=== PATIENT | male | born 1935 | race Caucasian/White ===

== ENCOUNTER → 2021-02-14 | Outpatient (CLI) | payer MEDICARE ==
[~2021-02-14] MED LIST: ASPIRIN325 MG PO; COREG CR10 MG PO; LIPITOR TAB 1010 MG PO; NITROSTAT 0.40.4 MG SL
== END ==
LOC: KOH-I 08:41
DX: J18.9 Pneumonia, unspecified organism (principal); R91.8 Other nonspecific abnormal finding of lung field; Z95.0 Presence of cardiac pacemaker
CPT/HCPCS: 71046

== ENCOUNTER → 2021-03-26 | Outpatient (CLI) | payer MEDICARE | LOC: KOH-I 08:11 | DX: J18.9 Pneumonia, unspecified organism (principal) | CPT/HCPCS: 71046 ==

== ENCOUNTER → 2021-03-27 | Outpatient (CLI) | payer MEDICARE | LOC: HEART 5 10:38 | DX: R06.02 Shortness of breath (principal); Z87.891 Personal history of nicotine dependence | CPT/HCPCS: 94060; 94729 ==

== ENCOUNTER 2021-05-09 20:26 | Emergency (ER) | payer MEDICARE, OTHER ==
[2021-05-09 21:11] LABS: HEMOGLOBIN 14.8 gm/dl (14.0-17.5); RED BLOOD COUNT 4.72 M/UL (4.20-5.50); WHITE BLOOD COUNT 7.3 K/UL (4.5-11.0)
[2021-05-09 21:34] LABS: BUN/CREATININE RATIO 12 (0-10)
== END 2021-05-09 23:00 | disposition home or self-care (01) ==
LOC: ER1 20:26
PROVIDERS: Emergency Medicine
DX: I50.9 Heart failure, unspecified (principal); K91.840 Postprocedural hemorrhage of a digestive system organ or structure following a digestive system procedure
CPT/HCPCS: 71045; 80053; 82550; 82553; 83874; 83880; 84484; 85025; 93005; 96374; 99285; J1940

== ENCOUNTER → 2021-05-20 | Outpatient (CLI) | payer MEDICARE | LOC: HEART 5 15:20 | DX: I11.0 Hypertensive heart disease with heart failure (principal); I50.22 Chronic systolic (congestive) heart failure; I25.5 Ischemic cardiomyopathy; I20.9 Angina pectoris, unspecified; I08.1 Rheumatic disorders of both mitral and tricuspid valves; I27.20 Pulmonary hypertension, unspecified | CPT/HCPCS: 93306 ==

== ENCOUNTER 2022-03-21 11:08 | Emergency (ER) | payer MEDICARE | END 2022-03-21 12:03 | disposition home or self-care (01) | LOC: ER1 11:08 | DX: S51.812A Laceration without foreign body of left forearm, initial encounter (principal); S93.401A Sprain of unspecified ligament of right ankle, initial encounter; I25.2 Old myocardial infarction; Z95.1 Presence of aortocoronary bypass graft; Z79.01 Long term (current) use of anticoagulants; W01.0XXA Fall on same level from slipping, tripping and stumbling without subsequent striking against object, initial encounter; Y92.009 Unspecified place in unspecified non-institutional (private) residence as the place of occurrence of the external cause | CPT/HCPCS: 73610; 99283 ==

== ENCOUNTER → 2022-04-24 | Outpatient (CLI) | payer MEDICARE | LOC: KOH-I 14:02 | DX: R05.9 Cough, unspecified (principal) | CPT/HCPCS: 71046 ==